=== PATIENT | female | born 1990 | race Caucasian/White ===

== ENCOUNTER → 2023-09-01 | Emergency (ER) | payer OTHER ==
[~2023-09-01] VITALS: Ht 172.7 cm; Wt 66.7 kg
[~2023-09-01] MED LIST: AUG875 PO; LIDOCAINE 1%, 20 ML MDV 20 ML ONE
[2023-09-01 21:04] VITALS: BP_SYST 125; PULSE 79; RESP 16; TEMP 97.3; O2SAT 98
[2023-09-01 22:32] VITALS: TEMP 97.3
[2023-09-01 23:00] VITALS: BP_SYST 129; PULSE 69; RESP 19; O2SAT 99
[2023-09-01] MEDS: BACITRACIN 1 GM OINT TP ONE (23:02)
[2023-09-01] MEDS: LIDOCAINE 1% 10 MG/ML, 20 ML MDV INJ ONE (23:14)
== END | disposition home or self-care (01) ==
LOC: SED 19:59
DX: S61.412A Laceration without foreign body of left hand, initial encounter (principal); Z88.1 Allergy status to other antibiotic agents; Z88.2 Allergy status to sulfonamides; Z91.013 Allergy to seafood; Z79.899 Other long term (current) drug therapy; W54.0XXA Bitten by dog, initial encounter; Y93.89 Activity, other specified; Y92.89 Other specified places as the place of occurrence of the external cause; Y99.8 Other external cause status
CPT/HCPCS: 99283; J2001